=== PATIENT | male | born 2000 | race Caucasian/White ===

== ENCOUNTER 2023-03-01 16:00 | Emergency (ER) | payer OTHER, SELFPAY ==
[2023-03-01 16:12] VITALS: BP 160/92; PULSE 85; RESP 18; TEMP 36.6; O2SAT 99; BMI 29.7
--- NOTE | 2023-03-01 16:18 | DI.RAD.S_ITS ---
PROCEDURE: XR FINGER RT MIN 2V INDICATIONS: injury TECHNIQUE: AP hand, 2 views of the 3rd finger(s) acquired. COMPARISON: None. FINDINGS: Bones: 3rd digit distal phalanx corner fracture at the dorsal surface best seen on the lateral projection. No dislocations. No suspicious bony lesions. Soft tissues: No suspicious soft tissue calcifications. IMPRESSION: 3rd digit distal phalanx corner fracture. Dictated by: Williams Hunt M.D. on 03/01/2023 at 17:13 Approved by: Williams Hunt M.D. on 03/01/2023 at 17:14
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
== END 2023-03-01 18:05 | disposition home or self-care (01) ==
PROVIDERS: Emergency Provider Student in an Organized Health Care Education/Training Program
DX: S62.662A Nondisplaced fracture of distal phalanx of right middle finger, initial encounter for closed fracture (principal); X58.XXXA Exposure to other specified factors, initial encounter
CPT/HCPCS: 29130; 73140; 99281; 99283